=== PATIENT | male | born 1995 | race African-American/Black ===

== ENCOUNTER 2017-02-22 21:49 | Emergency (ER) | payer OTHER ==
--- NOTE | 2017-02-23 01:49 | ER Document Report ---
ED Extremity Problem, Lower - General Information source: Patient TRAVEL OUTSIDE OF THE [place] IN LAST 30 DAYS: No - HPI Patient complains to provider of: Pain - in left foot Location: Foot - left Where: Other - playing basketball <OLY OTERO - Last Filed: 02/23/17 02:38> <LAURENT CAMPOS - Last Filed: 02/23/17 04:33> - General Chief Complaint: Ankle Pain Stated Complaint: LEFT ANKLE INJURY Time Seen by Provider: 02/23/17 01:19 Notes: Patient is a 22 year old male who presents to the ED with complaints of left foot pain secondary to rolling it while playing basketball over 1 week ago. Patient states his pain improved and he started playing basketball again yesterday re-injuring his foot the same way. Patient states when he rolled his foot he felt a pop both times. No other concerns or complaints at this time. (OLY OTERO) - Related Data Allergies/Adverse Reactions: No Known Allergies Allergy (Verified 02/23/17 01:36) Past Medical History - Social History Smoking Status: Never Smoker Cigarette use (# per day): No Chew tobacco use (# tins/day): No Frequency of alcohol use: None Drug Abuse: None Patient has suicidal ideation: No Patient has homicidal ideation: No Renal/ Medical History: Denies: Hx Peritoneal Dialysis Surgical Hx: Negative - Immunizations Hx Diphtheria, Pertussis, Tetanus Vaccination: Yes <OLY OTERO - Last Filed: 02/23/17 02:38> - Social History Family History: Reviewed & Not Pertinent <LAURENT CAMPOS - Last Filed: 02/23/17 04:33> Physical Exam - General General appearance: Appears well, Alert In distress: None - HEENT Head: Normocephalic, Atraumatic Eyes: Normal Extraocular movements intact: Yes Pupils: PERRL - Respiratory Respiratory status: No respiratory distress - Cardiovascular Rhythm: Regular - Abdominal Inspection: Normal - Back Back: Normal - Extremities General upper extremity: Normal inspection, Normal ROM General lower extremity: No: Normal inspection - see foot exam below Foot: Tender - to palpation of dorsal aspect of left foot and inferior to left lateral malleolus, Ecchymosis - to dorsal aspect of left foot - Neurological Neuro grossly intact: Yes Cognition: Normal Orientation: AAOx4 Michael Coma Scale Eye Opening: Spontaneous [place] Coma Scale Verbal: Oriented [place] Coma Scale Motor: Obeys Commands Michael Coma Scale Total: 15 Speech: Normal - Psychological Associated symptoms: Normal affect, Normal mood - Skin Skin Temperature: Warm Skin Moisture: Dry Skin Color: Normal <OLY OTERO - Last Filed: 02/23/17 02:38> Course <BRANDENOLY - Last Filed: 02/23/17 02:38> - Diagnostic Test Radiology reviewed: Reports reviewed <LAURENT CAMPOS - Last Filed: 02/23/17 04:33> - Re-evaluation Re-evalutation: No acute findings on x-ray. Patient will be given Juan wrap which he can apply himself. Instructed to ice his foot. Take Tylenol and ibuprofen as needed for pain. Patient is instructed to do therapy for his foot and ankle and cannot play contact sports for a few weeks. Understands and agrees with plan. Stable for discharge. (LAURENT CAMPOS) - Vital Signs Vital signs: Temp Pulse Resp BP Pulse Ox 98.0 F 73 14 95/62 L 100 02/23/17 02:29 02/23/17 02:29 02/23/17 02:29 02/23/17 02:29 02/23/17 02:29 Discharge <CRISTIAN OTEROANDRA - Last Filed: 02/23/17 02:38> <LAURENT CAMPOS - Last Filed: 02/23/17 04:33> - Discharge Clinical Impression: Sprain of foot, left Qualifiers: Encounter type: initial encounter Qualified Code(s): S93.602A - Unspecified sprain of left foot, initial encounter Condition: Stable Disposition: HOME, SELF-CARE Instructions: Sprain ([facility]), Use of Crutches ([facility]), Exercises for the Foot Muscles ([facility]) Prescriptions: Naproxen [Naprosyn 250 mg Tablet] 250 mg PO DAILY PRN #14 tablet PRN Reason: Forms: Return to Work Scribe Attestation: 02/23/17 04:33 I personally performed the services described in the documentation, reviewed and edited the documentation which was dictated to the scribe in my presence, and it accurately records my words and actions. (LAURENT CAMPOS)
--- NOTE | 2017-02-23 02:11 | RADIOLOGY REPORT (SQ) ---
EXAM DESCRIPTION: ANKLE LEFT COMPLETE COMPLETED DATE/TIME: 02/23/2017 1:45 am REASON FOR STUDY: pain/ injury COMPARISON: None. NUMBER OF VIEWS: Three views. TECHNIQUE: AP, lateral, and oblique radiographic images acquired of the left ankle. LIMITATIONS: None. FINDINGS: MINERALIZATION: Normal. BONES: No acute fracture or dislocation. No worrisome bone lesions. 1.0 x 0.2 cm ossicular fragment ation at the base of the left 5th metatarsus consistent with old avulsive injury or fragmented enthes ophyte. JOINTS: No effusions. SOFT TISSUES: No soft tissue swelling. No foreign body. OTHER: No other significant finding. IMPRESSION: NO RADIOGRAPHIC EVIDENCE OF ACUTE INJURY. TECHNICAL DOCUMENTATION: JOB ID: [id number] [employer]- All Rights Reserved
[2017-02-23 02:34] VITALS: BP 95/62
== END 2017-02-23 02:40 | disposition home or self-care (01) ==
LOC: ER 21:49
DX: S93.602A Unspecified sprain of left foot, initial encounter (principal); M25.572 Pain in left ankle and joints of left foot; X50.0XXA Overexertion from strenuous movement or load, initial encounter; Y93.67 Activity, basketball
CPT/HCPCS: 99283